=== PATIENT | female | born 1980 | race Caucasian/White ===

== ENCOUNTER 2017-11-28 19:58 | Inpatient (IN) | payer OTHER ==
[~2017-11-28] VITALS: Ht 154.2 cm; Wt 63.5 kg
[2017-11-28 21:32] LABS: BASOPHILS % (AUTO) 0.3 % (0.0-2.0); HEMATOCRIT 38.4 % (31.2-41.9); HEMOGLOBIN 12.9 g/dL (10.9-14.3); LYMPHOCYTES # (AUTO) 1.4 K/uL (20.0-40.0); LYMPHOCYTES % (AUTO) 18.8 % (20.5-51.5); MEAN CORPUSCULAR HEMOGLOBIN 28.7 uug (24.7-32.8); MEAN CORPUSCULAR HGB CONC 34 g/dL (32.3-35.6); MEAN CORPUSCULAR VOLUME 85.1 fL (75.5-95.3); MONOCYTES # (AUTO) 0.8 K/uL (2.0-10.0); MONOCYTES % (AUTO) 10.7 % (0.0-11.0); NEUTROPHILS # (AUTO) 5.2 K/uL (1.8-8.9); NEUTROPHILS % (AUTO) 70.2 % (38.5-71.5); PLATELET COUNT (AUTO) 208 K/uL (179-408); RED BLOOD CELL COUNT(AUTO) 4.51 MIL/uL (3.63-4.92); WHITE BLOOD COUNT (AUTO) 7.4 K/uL (3.8-11.8)
[2017-11-28 21:41] LABS: CARBON DIOXIDE 21 mmol/L (21-32); CHLORIDE 101 mmol/L (98-107); CREATININE 1.5 mg/dL (0.6-1.3); GLUCOSE 117 mg/dL (74-106); POTASSIUM 3.9 mmol/L (3.5-5.1); UREA NITROGEN, BLOOD 33 mg/dL (7-18)
[2017-11-28 21:47] LABS: ALANINE AMINOTRANSFERASE 102 U/L (14-59); ALKALINE PHOSPHATASE 91 U/L (50-136); ASPARTATE AMINOTRANSFERASE 252 U/L (15-37); BILIRUBIN,DIRECT 0.3 mg/dL (0.0-0.2); BILIRUBIN,TOTAL 1.1 mg/dL (0.2-1.0); TOTAL PROTEIN, SERUM 8.5 g/dL (6.4-8.2)
[2017-11-28 21:48] LABS: ACETAMINOPHEN < 2.0 ug/mL (10-30)
[2017-11-28 21:53] LABS: ETHANOL < 3 MG/DL (0-0)
[2017-11-28 21:56] LABS: *URINE HCG, QUAL NEGATIVE (NEGATIVE)
[2017-11-28 22:06] LABS: *AMPHETAMINE, URINE POSITIVE (NEGATIVE); *BARBITURATE, URINE NEGATIVE (NEGATIVE); *CANNABINOID, URINE NEGATIVE (NEGATIVE); *COCCAINE, URINE NEGATIVE (NEGATIVE); *OPIATE, URINE NEGATIVE (NEGATIVE); *PHENCYCLIDINE SCREEN,URINE NEGATIVE (NEGATIVE)
[2017-11-28 22:15] LABS: THYROID STIMULATING HORMONE 0.673 mIU/mL (0.358-3.740)
[2017-11-28 22:26] LABS: *BLOOD, URINE 3+ (NEGATIVE); *CLARITY,URINE CLEAR (CLEAR); *COLOR,URINE YELLOW (YELLOW); *KETONES,URINE 1+ (NEGATIVE); *PROTEIN,URINE 2+ (NEGATIVE); *UROBILINOGEN,URINE 0.2 E.U./dl (NORMAL); LEUKOCYTE ESTERASE ,URINE NEGATIVE (NEGATIVE); NITRITE, URINE NEGATIVE (NEGATIVE); PH,URINE 5.5 (5.0-8.0); UGLUCOSE NEGATIVE (NEGATIVE)
[2017-11-28 22:41] LABS: *BILIRUBIN,URIN 1+ (NEGATIVE)
--- NOTE | 2017-11-28 22:42 | NUR ---
PT IN BED WITH DOG. CALL MADE TO [facility].
[2017-11-28 22:56] LABS: BACTERIA,URINE NONE SEEN /HPF (NONE SEEN); MUCUS,URINE FEW /LPF (0-FEW); SQUAMOUS EPITHELIAL CELL,UR MODERATE /HPF (NONE SEEN); YEAST,URINE FEW /HPF (NONE SEEN)
[2017-11-28] MEDS ORDERED: IV NORMAL SALINE 1000 ML BAG IV ONE (23:30)
--- NOTE | 2017-11-28 23:45 | NUR ---
REPORT GIVEN TO ALFONSO GARCIA
--- NOTE | 2017-11-28 23:55 | NUR ---
NURSING COGNOS AWARE OF PATIENT BEING ADMITTED TO TELE FLOOR WITH DOG. PATIENT HAS NO FAMILY OR FRIENDS TO TAKE CARE OF DOG WHILE ADMISSION TO HOSPITAL
[2017-11-29] MEDS ORDERED: ONDANSETRON 4 MG/2 ML VIAL IV PRN
[2017-11-29] MEDS ORDERED: HYDROCODONE/APAP 5-325MG TABLET PO PRN
[2017-11-29] MEDS ORDERED: ACETAMINOPHEN 325 MG TABLET PO PRN
[2017-11-29] MEDS ORDERED: TEMAZEPAM 15 MG CAPSULE PO PRN
[2017-11-29] MEDS ORDERED: MAGNESIUM HYDROXIDE 30 ML LIQUID UDC PO PRN
[2017-11-29] MEDS ORDERED: LORAZEPAM 2 MG/1 ML VIAL IV PRN
[2017-11-29] MEDS ORDERED: IV NS 1000 ML 1,000 ML IV PRN
--- NOTE | 2017-11-29 00:10 | NUR ---
Pt. admitted to TELEMETRY, under care of Dr. ALMEIDA Belongs List completed
--- NOTE | 2017-11-29 00:10 | NUR ---
RECEIVED PT FROM [facility] [employer]. PT AWAKE AND ORIENTEDX2. PT JUST KNOW HER NAME AND DATE OF BUT NOT KNOW WHERE SHE IS. DOG AT BEDSIDE. PT ADMITTED TO TELE UNDER THE CARE OF DR. ALMEIDA. ADMISSION PROCESS AND CARE PLAN INITIATED. NEW ADMISSION. CORRECTION ASSESSMENT DONE. SAFETY AND COMFORT PROVIDED. CALL LIGHT WITHIN REACH. WILL CONTINUE TO MONITOR.
[2017-11-29 00:26] VITALS: BP 119/66
--- NOTE | 2017-11-29 00:51 | NUR ---
PT AGITATED AND WAS GIVEN ATIVAN. PT WANTS TO WALK AROUND THE MED-SURG FLOOR WITH HER DOG. CALLED KARINA TEE FOR HER. NURSING BIOSTATISTICS DIRECTOR AND CHARGE NURSE AWARE OF THE SITUATION. PT KEPT COMBING THE DOG. PT ANXIOUS AND KEEP SWAYING BACK AND FORTH. SITTER AT BEDSIDE. WILL CONTINUE TO MONITOR.
--- NOTE | 2017-11-29 01:30 | NUR ---
CALLED DOCTOR [place] CLERK BECAUSE PT STILL AGITATED. ORDERED ATIVAN 2MG. PT WANTS COFFEE TOLD HER ITS STILL MIHAI AND SHE NEEDS TO CALM DOWN. GAVE RESTORIL TO THE PT. WILL CONTINUE TO MONITOR.
[2017-11-29] MEDS ORDERED: LORAZEPAM 2 MG/1 ML VIAL IV ONE (02:00)
--- NOTE | 2017-11-29 06:06 | NUR ---
PT SLEPT INTERMITTENTLY. PT AGITATION RESOLVED. PT SHOWS NO SIGNS OF DISTRESS. PT IV INTACT AND PATENT. PRESCRIBED MEDICATION THAT ARE PRN LIKE ATIVAN AND RESTORIL GIVEN. PT TOLERATED IT WELL.PT REFUSED TO TAKE OUT THE IV AND PUT ON THE NEW ONE. WILL ENDORSE TO DAYSHIFT NURSE.SAFETY AND COMFORT PROVIDED.PT DOG KEEP ON BARKING. PT DOG WILL BE TAKEN BY [facility] [id number]. WILL ENDORSED TO DAYSHIFT NURSE.
[2017-11-29] MEDS ORDERED: PANTOPRAZOLE SODIUM 40 MG TABLET.DR PO SCH (07:00)
--- NOTE | 2017-11-29 07:00 | NUR ---
PATIENT RECEIVED IN BED ASLEEP, A AND O X 2 WITH CONFUSION. PATIENT'S DOG IN BED. 1:1 SITTER AT BEDSIDE. NO ACUTE DISTRESS NOTED. IV ACCESS ON THE RIGHT WRIST #22, PATIENT REFUSED IVF NS @80 CC/HR PER SENIOR ENLISTED ADVISOR. WAS AGITATED THROUGHOUT SENIOR ENLISTED ADVISOR, ATIVAN PRN WAS GIVEN. SAFETY MEASURES OBSERVED AT ALL TIMES. COMFORT MEASURES PROVIDED WILL CONTINUE TO MONITOR CLOSELY.
[2017-11-29] MEDS ORDERED: ASPIRIN 81 MG TAB.CHEW PO SCH (09:00)
--- NOTE | 2017-11-29 09:15 | NUR ---
WENT INTO PATIENT'S ROOM TO GIVE AM MEDS, OFFERED TO INFUSE IVF, PATIENT SAID "NURSES COME IN HERE TO TURN THE MACHINE OFF THEY DON'T WANT ME TO GET WATER" EXPLAINED AND REDIRECTED HER THAT SHE WASN'T HOOKED UP TO THE IV PUMP BECAUSE SHE REFUSED IT EARLIER AND IT WAS NOT TURNED OFF, OFFERED AGAIN TO INFUSE IT, PATIENT ALLOWED.
[2017-11-29 09:25] LABS: BASOPHILS % (AUTO) 0.2 % (0.0-2.0); EOSINOPHILS # (AUTO) 0.1 K/uL (0.0-0.7); EOSINOPHILS % (AUTO) 1.3 % (0.0-7.0); HEMATOCRIT 35.8 % (31.2-41.9); HEMOGLOBIN 12.1 g/dL (10.9-14.3); LYMPHOCYTES # (AUTO) 1.9 K/uL (20.0-40.0); LYMPHOCYTES % (AUTO) 30.4 % (20.5-51.5); MEAN CORPUSCULAR HGB CONC 34 g/dL (32.3-35.6); MEAN CORPUSCULAR VOLUME 85.6 fL (75.5-95.3); MONOCYTES # (AUTO) 0.6 K/uL (2.0-10.0); MONOCYTES % (AUTO) 9.6 % (0.0-11.0); NEUTROPHILS # (AUTO) 3.7 K/uL (1.8-8.9); NEUTROPHILS % (AUTO) 58.5 % (38.5-71.5); PLATELET COUNT (AUTO) 184 K/uL (179-408); RED BLOOD CELL COUNT(AUTO) 4.18 MIL/uL (3.63-4.92); WHITE BLOOD COUNT (AUTO) 6.4 K/uL (3.8-11.8)
[2017-11-29 09:41] LABS: ALANINE AMINOTRANSFERASE 98 U/L (14-59); ALKALINE PHOSPHATASE 74 U/L (50-136); ASPARTATE AMINOTRANSFERASE 219 U/L (15-37); CARBON DIOXIDE 27 mmol/L (21-32); CHLORIDE 103 mmol/L (98-107); CHOLESTEROL 201 mg/dL (<200); CREATININE 1.3 mg/dL (0.6-1.3); GLUCOSE 138 mg/dL (74-106); HDL CHOLESTEROL 112 mg/dL (40-60); MAGNESIUM 2.2 mg/dL (1.8-2.4); PHOSPHOROUS 3.4 mg/dL (2.5-4.9); POTASSIUM 3.3 mmol/L (3.5-5.1); TOTAL PROTEIN, SERUM 7.1 g/dL (6.4-8.2); TRIGLYCERIDES 45 MG/DL (30-150); UREA NITROGEN, BLOOD 28 mg/dL (7-18)
[2017-11-29 09:43] LABS: THYROID STIMULATING HORMONE 0.979 mIU/mL (0.358-3.740)
--- NOTE | 2017-11-29 09:45 | NUR ---
NOTED PATIENT GETTING AGITATED AND AGGRESSIVE WITH VISH MONTERROSO SAYING THAT SHE WANTS THE DOOR CLOSED AND THAT SHE CAN BECAUSE THE DR. ALLOWED IT. TRIED TO REDIRECT AND EXPLAIN TO PATIENT THAT THE DOOR NEEDS TO REMAIN OPEN. PATIENT FORCEFULLY CLOSES THE DOOR. WILL CONTINUE TO MONITOR CLOSELY.
--- NOTE | 2017-11-29 10:13 | NUR ---
PATIENT STILL REFUSES TO OPEN THE DOOR, KNOCKED AND TRIED SEVERAL TIMES TO COME IN, BUT PATIENT KEEPS ON CLOSING THE DOOR AND SAYING SHE'S NOT DONE CLEANING AFTER HER DOG YET. COULD HEAR THE DOG CRIES FROM OUTSIDE THE DOOR. WILL CONTINUE TO MONITOR.
[2017-11-29 10:22] LABS: CREATINE KINASE, TOTAL > 14000 U/L (26-192)
--- NOTE | 2017-11-29 10:30 | NUR ---
NURSES AND HOSPITAL STAFF ENTERED PATIENT ROOM TO CHECK ON PATIENT, PT'S DOG RUSHED AND BARKED AT HOSPITAL STAFF, NOTED THAT ROOM WAS MESSY AND DOG POO EVERYWHERE. PATIENT STILL AGITATED AND REFUSES TO KEEP DOOR OPEN. WILL CONTINUE TO MONITOR.
[2017-11-29] MEDS ORDERED: POTASSIUM CHLORIDE 20 MEQ TAB.PRT.SR PO ONE (10:45)
--- NOTE | 2017-11-29 10:46 | NUR ---
Nursing Note Patient has dog in room. Patient reports dog is a emotional service animal. Entered room and dog barked and lunged at me. Dog defecated on floor. urinating on floor. Asked patient if someone could flower picker the dog or walk the dog. Patient replied no. Informed patient we will provide senior care for the dog until the dog is discharged. Patient refused and said she will leave. Advised patient of the risks of leaving the hospital against medical advice. Patient refused treatment
[2017-11-29] MEDS ORDERED: FLUCONAZOLE 200 MG TABLET PO ONE (11:15)
[2017-11-29] MEDS ORDERED: PERMETHRIN 5% CREAM 60 GM TUBE TP ONE (11:15)
--- NOTE | 2017-11-29 11:15 | NUR ---
Patient reported that she is leaving. Educated patient that she is not medically stable and that the patient needed treatment. Informed her of risks of leaving hospital. Patient became very agitated pulled out a IV. Patient refused to remove wrist band. Patient ran out of hospital. Security notfied [employer] that patient left hospital AMA with a wristband. All belongings removed with patient.
--- NOTE | 2017-11-29 11:20 | NUR ---
PT IS MANIC, HYPERVERBAL, NOT MAKING ANY SENSE WHEN SHE SPEAKS, INSULTING STAFF AND REFUSES TO GO BACK TO ROOM AND SIGN AMA DOCUMENT. PT TOOK THE STAIRS WITH HER DOG.
--- NOTE | 2017-11-29 11:20 | NUR ---
PATIENT NOTED TO BE AGITATED AND AGGRESSIVE, LEFT ROOM WITH DOG LOOKING FOR ELEVATOR, STATING THAT SHE WAS GOING TO LEAVE BECAUSE HER DOG WAS BEING TAKEN AWAY BY ANIMAL CONTROL. EXPLAINED RISKS OF LEAVING HOSPITAL AGAINST MEDICAL ADVICE, PATIENT CONTINUES TO INSULT STAFF AND REFUSES TO SIGN AMA DOCUMENT. PATIENT LEFT HOSPITAL WITH DOG. Addendum: 11/29/17 at 1138 by HUMZA MURILLO RN PATIENT REFUSED TO HAVE ID BAND TAKEN OFF.
[2017-11-29] MEDS ORDERED: CEFTRIAXONE 1 G in IV DEXTROSE 5% 50 ML IV SCH (12:00)
[2017-11-29] MEDS ORDERED: FLUCONAZOLE 200 MG/NS 100ML IV 200 MG in PREMIXED 1 EACH IV SCH (12:00)
--- NOTE | 2017-11-29 12:12 | NUR ---
10:40am: AR consulted requested. AR accompanied Claims Adjuster Crop Raul, Informatics Coordinator Cooper Valdivia, nursing staff, to patient's room. home management supervisor Deb also present. Raul spoke with patient regarding patient's dog, and the fact that the dog had been barking, defecating and urinating on the floor, and that the hospital could make arrangements for appropriate half-way for the dog until patient was ready to be discharged, unless patient had someone she could call to come greens picker the dog. Patient presented agitated and argumentative, and stated not having anyone she could call. Patient stated that the dog was not barking or defecating or urinating on the floor, although several staff had witnessed the dogs behavior and there was urine all over the floor at the time of this meeting. Raul once again stated that the other option was that the hospital could arrange for the animal half-way to greens picker the dog and house the dog until patient was ready for discharge. Patient's responses contained some thoughts that were not intact. See nursing notes from Claims Adjuster Crop Raul. AR called the [facility] Department of Animal Services [phone], and got connected to the [facility] [place] ([id number] [facility], [facility]). AR spoke with Office Pro and made arrangements for the dog to be picked up. Officer Pro stated that they will send someone to greens picker the dog anytime between now and 4pm today. AR informed Claims Adjuster Crop Raul and med/surg AR Merritt.
--- NOTE | 2017-11-29 12:27 | NUR ---
12:00pm: AR called the [facility] again [phone] and spoke with Officer Pro. AR cancelled the spanish moss picker for the dog because patient left AMA. See nursing notes for details of patient leaving AMA. Knitting Machine Fixer Head Raul and med/surg AR Merritt informed that the [facility]'s pick-up was cancelled.
== END 2017-11-29 11:20 | disposition left against medical advice (07) | DRG 815 ==
LOC: EDBD 19:59 → ER 19:59 → TELE 23:38 → MED 11-29 11:00
PROVIDERS: ADMIT Internal Medicine; ATTEND Internal Medicine
DX: T67.0XXA Heatstroke and sunstroke, initial encounter (principal); I21.A1 Myocardial infarction type 2; N17.0 Acute kidney failure with tubular necrosis; M62.82 Rhabdomyolysis; R17 Unspecified jaundice; B37.49 Other urogenital candidiasis; X30.XXXA Exposure to excessive natural heat, initial encounter; Y93.01 Activity, walking, marching and hiking; Y92.410 Unspecified street and highway as the place of occurrence of the external cause; E87.6 Hypokalemia; E86.0 Dehydration; F15.10 Other stimulant abuse, uncomplicated; Z59.0 Homelessness; B85.2 Pediculosis, unspecified; E78.00 Pure hypercholesterolemia, unspecified; B86 Scabies; R73.9 Hyperglycemia, unspecified; F31.9 Bipolar disorder, unspecified; Z91.83 Wandering in diseases classified elsewhere; G89.29 Other chronic pain; M54.5 Low back pain; F11.90 Opioid use, unspecified, uncomplicated
CPT/HCPCS: 36415; 70030-TC; 71045; 80307; 83605; 83735; 84100; 84443; 84703; 85025; 85730; 87040; 87086; 93005; A4663; C1758; G0480; G0480-TC; J0696; J1450; J2060; J7030; J7060